=== PATIENT | female | born 1945 | race Caucasian/White ===

== ENCOUNTER 2019-03-01 11:52 | Emergency (ER) | payer OTHER ==
[2019-03-01 12:00] VITALS: BP 103/59; PULSE 79; TEMP 98.2; BMI 25.7
[2019-03-01 12:55] LABS: BASO % 0.4 % (0-2.0); HEMATOCRIT 39.7 % (32.4-45.2); HEMOGLOBIN 13.4 GM/dL (10.7-15.3); LYMPH % 7.6 % (8-40); MCH 28.5 pg (25.7-33.7); MCHC 33.7 g/dl (32.0-36.0); MEAN CELL VOLUME 84.5 fl (80-96); MEAN PLT VOLUME 7.3 fl (7.5-11.1); PLATELET COUNT 313 K/MM3 (134-434); RDW 12.5 % (11.6-15.6); WHITE BLOOD COUNT 11.2 K/mm3 (4.0-10.0)
[2019-03-01 13:13] LABS: INR 1.01 (0.83-1.09); PROTHROMBIN TIME (PATIENT) 11.9 SEC (9.7-13.0)
[2019-03-01 13:19] LABS: EPI CELLS 3.2 /HPF (0-5/HPF); HYALINE CASTS 17 /lpf (0-8); PH,URINE 5.5 (5.0-8.0); URINE APPEARANCE CLOUDY; URINE BACTERIA 3.7 /hpf (NEGATIVE); URINE BILIRUBIN 1+ (NEGATIVE); URINE COLOR DK YELLOW; URINE GLUCOSE (UA) NEGATIVE (NEGATIVE); URINE KETONE 1+ (NEGATIVE); URINE LEUK ESTERASE NEGATIVE (NEGATIVE); URINE NITRITE NEGATIVE (NEGATIVE); URINE PROTEIN 1+ (NEGATIVE); URINE RBC 8 /hpf (0-4); URINE WBC 2 /hpf (0-5)
[2019-03-01 13:21] LABS: ALBUMIN 3.8 g/dl (3.4-5.0); BILIRUBIN,TOTAL 0.5 mg/dL (0.2-1); BLOOD UREA NITROGEN 17.4 mg/dL (7-18); POTASSIUM 4.2 mmol/L (3.5-5.1); TOT PROT 6.8 g/dl (6.4-8.2)
--- NOTE | 2019-03-01 14:58 | PDOC ---
History of Present Illness - General Chief Complaint: Rectal Bleed Stated Complaint: SNET BY PCP Time Seen by Provider: 03/01/19 12:28 History Source: Patient Exam Limitations: No Limitations - History of Present Illness Travel History: No Initial Comments: 03/01/19 14:52 73-year-old female presents to ED for evaluation of loose bowel movement 2 this morning at around 3 AM followed by 2 episodes of bloody stool at around 6: 30 AM. Patient had went to Dr. hicks's office 3 view her lab work from last week but was told by the nurse to go to to the ER after she was questioned on how she is feeling. Timing/Duration: reports: intermittent Quality: reports: mild, cramping Abdominal Pain Onset Location: reports: RLQ, LLQ Pain Radiation: reports: no radiation Aggravating Factors: worse with: None Alleviating Factors: worse with: None Past History - Travel Traveled outside of the country in the last 30 days: Yes - Past Medical History Allergies/Adverse Reactions: Allergies Allergy/AdvReac Type Severity Reaction Status Date / Time No Known Allergies Allergy Verified 03/01/19 11:55 Home Medications: Ambulatory Orders NK [No Known Home Medication] 03/01/19 COPD: No - Suicide/Smoking/Psychosocial Hx Smoking History: Never smoked Patient Lives Alone: No Lives with/in: spouse/SO Abd/GI Specific PMHX - Complaint Specific PMHX Colitis: No Diverticulitis: No Review of Systems - Review of Systems Able to Perform ROS?: No Is the patient limited [place]ian proficient: No Constitutional: No: Symptoms Reported HEENTM: No: Symptoms Reported Respiratory: No: Symptoms reported Cardiac (ROS): No: Symptoms Reported ABD/GI: Yes: Blood Streaked Bowels, Diarrhea, Abdominal cramping : No: Symptoms Reported Musculoskeletal: No: Symptoms Reported Integumentary: No: Symptoms Reported Neurological: No: Symptoms reported Endocrine: No: Symptoms Reported *Physical Exam - Vital Signs Last Vital Signs Temp Pulse Resp BP Pulse Ox 98.2 F 79 18 103/59 L 97 03/01/19 11:58 03/01/19 11:58 03/01/19 11:58 03/01/19 11:58 03/01/19 11:58 - Physical Exam General Appearance: Yes: Nourished, Appropriately Dressed. No: Apparent Distress HEENT: negative: Pale Conjunctivae Neck: positive: Normal Thyroid Respiratory/Chest: positive: Lungs Clear, Normal Breath Sounds. negative: Respiratory Distress, Accessory Muscle Use Cardiovascular: positive: Regular Rhythm, Regular Rate. negative: Murmur Gastrointestinal/Abdominal: positive: Soft, Tenderness Musculoskeletal: negative: CVA Tenderness (lower periumbilical) Extremity: positive: Normal Inspection Integumentary: positive: Normal Color, Warm, Moist Neurologic: positive: Motor Strength 5/5 (ambulatory) ED Treatment Course - LABORATORY CBC & Chemistry Diagram: 03/01/19 12:40 03/01/19 12:40 - ADDITIONAL ORDERS Additional order review: Laboratory Results 03/01/19 03/01/19 03/01/19 12:40 12:40 11:40 PT with INR 11.90 INR 1.01 Sodium 143 Potassium 4.2 Chloride 110 H Carbon Dioxide 26 Anion Gap 7 L BUN 17.4 Creatinine 1.0 Est GFR (CKD-EPI)AfAm 64.27 Est GFR (CKD-EPI)NonAf 55.45 Random Glucose 123 H Calcium 9.0 Total Bilirubin 0.5 AST 40 H ALT 20 Alkaline Phosphatase 73 Total Protein 6.8 Albumin 3.8 Urine Color Urine Appearance Urine pH Ur Specific [place] Urine Protein Urine Glucose (UA) Urine Ketones Urine Blood Urine Nitrite Urine Bilirubin Urine Urobilinogen Ur Leukocyte Esterase Urine WBC (Auto) Urine RBC (Auto) Urine Casts (Auto) U Epithel Cells (Auto) Urine Bacteria (Auto) Stool Occult Blood Positive 03/01/19 11:40 PT with INR INR Sodium Potassium Chloride Carbon Dioxide Anion Gap BUN Creatinine Est GFR (CKD-EPI)AfAm Est GFR (CKD-EPI)NonAf Random Glucose Calcium Total Bilirubin AST ALT Alkaline Phosphatase Total Protein Albumin Urine Color Dk yellow Urine Appearance Cloudy Urine pH 5.5 Ur Specific [place] 1.033 Urine Protein 1+ H Urine Glucose (UA) Negative Urine Ketones 1+ H Urine Blood Trace Urine Nitrite Negative Urine Bilirubin 1+ H Urine Urobilinogen 1.0 Ur Leukocyte Esterase Negative Urine WBC (Auto) 2 Urine RBC (Auto) 8 Urine Casts (Auto) 17 U Epithel Cells (Auto) 3.2 Urine Bacteria (Auto) 3.7 Stool Occult Blood 03/01/19 12:40 RBC 4.70 MCV 84.5 MCHC 33.7 RDW 12.5 MPV 7.3 L Neutrophils % 89.0 H Lymphocytes % 7.6 L Monocytes % 3.0 L Eosinophils % 0.0 Basophils % 0.4 - RADIOLOGY Radiology Studies Ordered: Category Date Time Status ABDOMEN & PELVIS CT WITH CONTR [CT] Stat CT Scan 03/01/19 12:29 Completed Medical Decision Making - Medical Decision Making 03/01/19 14:07 Chief complaint: Bowel movement 4 last episodes bloody stool. No fever but does complain of mild abdominal cramping greater in the lower region patient denies any GI history and has had a colonoscopy a few years ago by Dr. Fong and was told she had small hemorrhoids. 03/01/19 15:01 Laboratory Tests 03/01/19 03/01/19 03/01/19 11:40 11:40 12:40 WBC 11.2 H Hgb 13.4 Hct 39.7 Neutrophils % 89.0 H Urine Protein 1+ H Urine Ketones 1+ H Urine Nitrite Negative Urine Bilirubin 1+ H Urine WBC (Auto) 2 Urine RBC (Auto) 8 Stool Occult Blood Positive CT shows thickening and irregularity of the large portion of the colon. This is consistent with a diffuse colitis. She also has extensive diverticulosis of the left colon without evidence of acute diverticulitis. There is no evidence of pelvic masses, fluid collections or lymphadenopathy. Case discussed the patient' s primary care physician Dr. shannon and agrees patient may go home with strict instructions to return back to the ER if symptoms do not improve with antibiotics. Reviewed patient's labs from last week and H&H stable at 13.2/39.1 from blood collected last week *DC/Admit/Observation/Transfer Diagnosis at time of Disposition: Colitis - Discharge Dispostion Disposition: HOME Condition at time of disposition: Good - Referrals Referrals: Miranda Mendez MD [Primary Care Provider] - - Patient Instructions Printed Discharge Instructions: DI for Colitis Additional Instructions: Please take antibiotics as prescribed. Drink plenty of fluids. Please also follow up with Dr. Mendez next week as he is aware of your visit and findings today. If your symptoms do not improve such as you develop fever, worsening abdominal pain repetitive rectal bleeding please return to the ED immediately - Post Discharge Activity
== END 2019-03-01 15:26 | disposition home or self-care (01) ==
LOC: SUPCPDRO 11:52 → JER 11:52
DX: K52.9 Noninfective gastroenteritis and colitis, unspecified (principal)
CPT/HCPCS: 36415; 74177-TC; 80053; 81003; 82272; 85025; 85610; 99282-25